=== PATIENT | female | born 2000 | race Caucasian/White ===

== ENCOUNTER 2021-09-23 21:49 | Emergency (ER) | payer OTHER, SELFPAY ==
[2021-09-23] VITALS (17 sets, daily range): BP systolic 124–156; BP diastolic 73–92; PULSE 76–118; RESP 12–30; TEMP 36.8; O2SAT 90–98
--- NOTE | ~2021-09-23 | XR_ITS ---
EXAMINATION: XR chest 1V portable EXAM DATE: 09/23/2021 22:28 INDICATION: Anaphylaxis, cough, throat closing feeling. Congestion. TECHNIQUE: Portable AP frontal chest x-ray was obtained. There is no prior study for comparison. FINDINGS: The lungs are clear. There are no pleural effusions. The cardiomediastinal silhouette is within normal limits. There is no pneumothorax suspected. The bones and soft tissues are unremarkab le. IMPRESSION: Normal chest x-ray exam. Reviewed, dictated and finalized at location A. IMPRESSION: Normal chest x-ray exam.
[2021-09-23] MEDS: EPINEPHrine HCL INJ 1 MG/ML AMPUL 0.3 MG IM (22:15)
[2021-09-23] MEDS: methylPREDNISolone SOD SUCC 125 MG VIAL IV PUSH (22:20)
[2021-09-23] MEDS: FAMOTIDINE 20 MG/2 ML VIAL IV PUSH (22:20)
--- NOTE | 2021-09-23 22:21 | ED.ALLEREA ---
HPI - Allergic Reaction General Chief complaint: Allergic Reaction Stated complaint: allergic reaction to excedrin Time Seen by Provider: 09/23/21 22:08 History of Present Illness HPI narrative: Patient is a 21-year-old female who presents ER with concerns for allergic reaction. She reports she had a headache today so she took some Excedrin. This occurred about 2 hours ago. She then developed sinus congestion and wheezing. She feels like her throat is closing. She reports this is been happening over the last couple months anytime she takes Excedrin and is worsening with each round. Typically improves with using her albuterol and using some nasal saline. She is taking 50 mg of Benadryl prior to arrival. Related Data Allergies Allergy/AdvReac Type Severity Reaction Status Date / Time acetaminophen AdvReac Difficulty Verified 09/24/21 01:50 [From Excedrin Migraine] Swallowing aspirin AdvReac Difficulty Verified 09/24/21 01:50 [From Excedrin Migraine] Swallowing caffeine AdvReac Difficulty Verified 09/24/21 01:50 [From Excedrin Migraine] Swallowing Review of Systems Constitutional: Constitutional: Denies chills and Denies fever(s) ENT: Reports nasal congestion and Reports sore throat Cardiovascular: Cardiovascular: Denies chest pain and Denies radiating jaw, neck or arm pain Respiratory: Respiratory: Reports cough, Reports dyspnea and Reports wheezing Gastrointestinal: Gastrointestinal: Denies nausea and Denies vomiting Integumentary/Breasts: Skin/Breast: Denies pruritus, Denies erythema and Denies rash Psychiatric: Psychiatric: Reports anxiety PMFSH Past Medical History Medical History (Updated 09/24/21 @ 02:05 by Steve Torres MD) Asthma Surgical History Surgical History (Updated 09/23/21 @ 22:32 by Steve Torres MD) No history of previous surgery Exam Narrative: GENERAL: Anxious-appearing, well-nourished, and in no acute distress. HEAD: Normocephalic, atraumatic. EYES: PERRL and EOMI. sclera injected bilaterally. ENT: Mucous membranes moist. Normal-appearing posterior oropharynx. CHEST: Tachypnea with diffuse wheezing and frequent coughing. HEART: Regular rate and rhythm. Normal peripheral pulses. ABDOMEN: Soft, nontender, nondistended. EXTREMITIES: Normal range of motion. No edema. SKIN: Warm, dry, no rash. NEURO: Alert and oriented x3. Course Course Emergency Course: Patient improved with epinephrine/Pepcid/Solu-Medrol. Wheezing now absent. Prolonged observation in the ER performed. Discharged with EpiPen. Vital Signs Vital signs: Vital Signs Temperature 98.3 F 09/23/21 21:51 Pulse Rate 86 09/23/21 21:51 Respiratory Rate 30 H 09/23/21 21:51 Blood Pressure 156/86 H 09/23/21 21:51 Pulse Oximetry 96 09/23/21 21:51 Temperature 98.3 F 09/23/21 21:51 Pulse Rate 80 09/24/21 01:38 Respiratory Rate 16 09/24/21 01:38 Blood Pressure 113/73 09/24/21 01:38 Pulse Oximetry 95 09/24/21 01:38 MDM - Allergic Reaction Lab Data Result diagrams: 09/23/21 22:30 09/23/21 22:30 Labs: Lab Results 09/23/21 09/23/21 Range/Units 22:30 22:30 WBC 9.3 (4.5-10.0) K/mm3 RBC 4.00 L (4.2-5.4) M/mm3 Hgb 12.5 (12.0-15.0) g/dL Hct 36.9 L (37.0-47.0) % MCV 92.3 (80-100) fl MCH 31.3 (26-34) pg MCHC 33.9 (32-36) g/dl RDW 12.8 (11.5-14.5) % Plt Count 221 (150-375) k/mm3 MPV 10.9 H (7.4-10.4) fl Immature Gran % (Auto) 0.2 (0-0.5) % Neut % (Auto) 47.7 (45.5-73.1) % Lymph % (Auto) 30.3 (18.3-44.2) % [place] % (Auto) 5.8 (2.6-8.5) % Eos % (Auto) 14.8 H (0-4.4) % Baso % (Auto) 1.2 (0.2-1.2) % Lymph # (Auto) 2.81 (0.9-3.2) K/mm3 [place] # (Auto) 0.5 (0.1-0.6) K/mm3 Eos # (Auto) 1.4 H (0-0.3) K/mm3 Baso # (Auto) 0.1 (0.0-0.1) K/mm3 Abs Immat Gran (auto) 0.02 (0.00-0.031) K/mm3 Absolute Neuts (auto) 4.4 (1.3-6.7) K/mm3 Absolute Nucleated RBC 0.0
[2021-09-23 22:37] LABS: Basophils Absolute Auto 0.1 K/mm3 (0.0-0.1); Basophils Percent Auto 1.2 % (0.2-1.2); Eosinophils Absolute Auto 1.4 K/mm3 (0-0.3); Eosinophils Percent Auto 14.8 % (0-4.4); Hematocrit 36.9 % (37.0-47.0); Hemoglobin 12.5 g/dL (12.0-15.0); Immature Granulocyte Absolute 0.02 K/mm3 (0.00-0.031); Immature Granulocyte Percent A 0.2 % (0-0.5); Lymphocytes Absolute Auto 2.81 K/mm3 (0.9-3.2); Lymphocytes Percent Auto 30.3 % (18.3-44.2); Mean Corpuscular HGB Conc 33.9 g/dl (32-36); Mean Corpuscular Hemoglobin 31.3 pg (26-34); Mean Corpuscular Volume 92.3 fl (80-100); Mean Platelet Volume 10.9 fl (7.4-10.4); Monocytes Absolute Auto 0.5 K/mm3 (0.1-0.6); Monocytes Percent Auto 5.8 % (2.6-8.5); Neutrophils Absolute Auto 4.4 K/mm3 (1.3-6.7); Neutrophils Percent Auto 47.7 % (45.5-73.1); Platelet Count Result 221 k/mm3 (150-375); Red Cell Distribution Width 12.8 % (11.5-14.5); White Blood Count 9.3 K/mm3 (4.5-10.0)
[2021-09-23] MEDS: IPRATROPIUM BR 0.02% INH SOLN 0.5 MG/2.5 ML VIAL INHALATION (22:47)
[2021-09-23] MEDS: ALBUTEROL SULFATE NEB 2.5 MG/0.5 ML INH 5 MG INHALATION (22:47)
[2021-09-23 22:52] LABS: Anion Gap 11 mmol/L (8-16); Blood Urea Nitrogen 11 mg/dL (7-17); Calcium 9.8 mg/dL (8.4-10.2); Carbon Dioxide 25 mmol/L (22-30); Chloride 101 mmol/L (98-107); Estimated CRCL calculation 77 ml/min; Estimated Glomerular Filt Rate > 60; Glucose 117 mg/dL (65-110); Potassium 3.4 mmol/L (3.4-5.0); Sodium 137 mmol/L (137-145)
[2021-09-24 00:09] VITALS: PULSE 78; RESP 20; O2SAT 97
[2021-09-24 00:15] VITALS: PULSE 82; RESP 16; O2SAT 96
[2021-09-24 01:38] VITALS: BP 113/73; PULSE 80; RESP 16; O2SAT 95
[2021-09-24 02:00] VITALS: O2SAT 99
[2021-09-24 02:21] VITALS: BP 105/74; PULSE 74; RESP 18; O2SAT 99
== END 2021-09-24 02:20 | disposition home or self-care (01) ==
PROVIDERS: Emergency Provider Emergency Medicine
DX: T88.6XXA Anaphylactic reaction due to adverse effect of correct drug or medicament properly administered, initial encounter (principal); T39.1X5A Adverse effect of 4-Aminophenol derivatives, initial encounter; J45.909 Unspecified asthma, uncomplicated
CPT/HCPCS: 36415; 71045; 80048; 85025; 94640; 96372; 96374; 96375; 99284; J0171; J2930